=== PATIENT | female | born 1970 | race Caucasian/White ===

== ENCOUNTER 2021-04-18 23:18 | Emergency (ER) | payer SELFPAY ==
[~2021-04-18] VITALS: Ht 165.1 cm; Wt 77.9 kg
[2021-04-18 23:45] VITALS: BP 152/83
[2021-04-18] MEDS ORDERED: HYDR-2155 PO (23:59)
--- NOTE | 2021-04-18 23:59 | PHYS DOC ---
Past History Past Medical History: DVT Past Surgical History: , Gastric Bypass, Other Additional Past Surgical Histo: left shoulder Smoking: Non-smoker Alcohol Use: Occasionally Drug Use: None General Adult EDM: Chief Complaint: WOUND CHECK HPI: HPI: 51-year-old female presents with report of pain to chronic ulceration to posterior right calf. Reports ulcer has been present for the last 2 years. Patient had previously been following with wound management including treatment with wound VAC. Patient was told at 1 point she would require a skin graft for the wound to completely heal. Patient reports Covid hit prior to getting the skin graft and patient subsequently lost her insurance. Denies any fever or chills. Patient does report she has been dressing the wound appropriately with antibiotic ointment and nonadherent dressing. Review of Systems: Review of Systems: Constitutional: Denies fever or chills Eyes: Denies redness or eye pain HENT: Denies nasal congestion or sore throat Respiratory: Denies cough or shortness of breath Cardiovascular: Denies chest pain or palpitations GI: Denies abdominal pain, nausea, or vomiting : Denies dysuria or hematuria Musculoskeletal: Denies back pain or joint pain Integument: Denies rash; reports chronic ulceration to posterior right calf Neurologic: Denies headache, focal weakness or sensory changes Complete systems were reviewed and found to be within normal limits, except as documented in this note. Current Medications: Current Meds: Current Medications Medications (Trade) Dose Ordered Sig/Keke Start Time Stop Time Status Last Admin Dose Admin Acetaminophen/ Hydrocodone Bitart (Lortab 5/325) 1 tab 1X ONCE 04/19/21 00:00 04/19/21 00:01 UNV Neomycin/ Polymyxin/ Bacitracin (Triple Antibiotic Ointment) 1 pkt 1X ONCE 04/19/21 00:00 04/19/21 00:01 UNV Physical Exam: PE: Constitutional: Well developed, well nourished, no acute distress, non-toxic appearance HENT: Normocephalic, atraumatic Eyes: Conjunctiva normal, no discharge Neck: Normal range of motion, supple Lungs & Thorax: No respiratory distress, equal chest rise and fall Skin: Warm, dry, no erythema, 6cm x 4cm chronic ulceration to posterior aspect of right calf, no surrounding erythema, no fluctuance Extremities: No tenderness except around chronic wound to right calf, ROM intact, no edema, right DP and PT +2 Neurologic: Alert and oriented X 3, no focal deficits noted Psychologic: Affect normal, judgment normal Current Patient Data: Vital Signs: Vital Signs Date Time Temp Pulse Resp B/P (MAP) Pulse Ox O2 Delivery O2 Flow Rate FiO2 04/18/21 23:45 98.6 70 16 152/83 (106) 99 Room Air EKG: EKG: [] Radiology/Procedures: Radiology/Procedures: [] Heart Score: C/O Chest Pain: N/A Course & Med Decision Making: Course & Med Decision Making Patient presents for evaluation of chronic right posterior leg ulceration that is been ongoing for 2 years. Patient reports she recently lost her insurance and has not followed up with wound management. Patient reports some increased throbbing to the wound. Reports has been dressing the wound appropriately and it has started to heal however has not fully closed. Denies fever or chills. Denies recent trauma. Wound appears without signs of active infection. Wound redressed after dressing had been taken down. Pain addressed. Patient stable for discharge with outpatient follow-up with PCP/wound management. Clinic community resources and referral to wound management provided. Discussed findings and plan with patient, who acknowledges understanding and agreement. Amrit Disclaimer: Amrit Disclaimer: This electronic medical record was generated, in whole or in part, using a voice recognition dictation system. Departure Departure: Impression: Primary Impression: Chronic ulcer of leg Qualified Codes: L97.912 - Non-pressure chronic ulcer of unspecified part of right lower leg with fat layer exposed Disposition: HOME / SELF CARE / HOMELESS Condition: STABLE Referrals: PCP,VANESA (PCP) Patient Instructions: Skin Ulcer Additional Instructions: Do not soak your wound. You may shower. Clean wound daily with soap and water. Change dressing 2 times daily. Use over the counter antibiotic ointment with each dressing change. Please follow with wound care clinic at [facility]: Call [phone]. [id number] [place] [address] Scripts Hydrocodone Bit/Acetaminophen (HYDROCODONE-APAP 5-325 ) 1 Each Tablet 0.5-1 TAB PO PRN Q6HRS PRN for PAIN, #14 TAB 0 Refills Prov: CHIARA BASILIO DO 04/18/21 CHIARA BASILIO DO Apr 18, 2021 23:59
[2021-04-19] MEDS ORDERED: HYDROcodone/APAP 5/325MG 1 TAB TABLET PO ONE (00:30)
[2021-04-19] MEDS ORDERED: NEOMY/BACITR/POLYMYXIN OINT PACKET. TP ONE (00:30)
== END 2021-04-19 00:15 | disposition home or self-care (01) ==
LOC: ER 23:18
DX: L97.219 Non-pressure chronic ulcer of right calf with unspecified severity (principal); Z86.718 Personal history of other venous thrombosis and embolism
CPT/HCPCS: 99283